=== PATIENT | female | born 1960 | race Caucasian/White ===

== ENCOUNTER 2017-10-13 10:34 | Inpatient (IN) | payer OTHER, MEDICARE ==
[~2017-10-13] VITALS: Ht 162.6 cm; Wt 62.2 kg
[2017-10-13 10:38] VITALS: BP 172/81; PULSE 92; RESP 16; TEMP 98; O2SAT 98
[2017-10-13] MEDS ORDERED: SODIUM CHLORIDE 0.9% FLUSH 10 ML FLUSH IVF PRN (11:00)
--- NOTE | 2017-10-13 11:07 | PD ---
HPI Chief Complaint: Altered Mental Status Time Seen by Provider: 10:44 Travel History International Travel<30 days: No Contact w/Intl Traveler<30days: No Traveled to known affect area: No History of Present Illness HPI The patient is a 57-year-old female who presents to the emergency department via private vehicle with her family for altered mental status. The daughter states she had not heard from her mother for 2 days, she came over the house today in the house was disheveled per the patient's daughter. The daughter also stated there were pills "everywhere ", however, she is unsure if her mother ingested too many medications. The daughter does state the patient' s psychiatrist, Dr. Chin, has been changing the doses of her psychiatric medications. The patient does have a history of previous psychosis requiring intubation approximately 4 years ago when her , according to the patient's daughter. The patient denies any physical complaints, appears to have a normal conversation, however, the middle of a conversation will start talking about cookies or some other inappropriate subject. The patient denies any current complaints. She denies any alcohol ingestion or illicit drug use. [facility] [place] Past Medical History Narrative Medical Depression, anxiety, thyroid disorder Past Surgical History Narrative Surgical Noncontributory Social History Tobacco Use: Yes Allergies-Medications (Allergen,Severity, Reaction): Coded Allergies: ibuprofen (Verified Allergy, Unknown, 10/13/17) promethazine (Verified Allergy, Unknown, 10/13/17) interaction with effexor Review of Systems ROS Limitations: Poor Historian Except as stated in HPI: all other systems reviewed are Neg General / Constitutional: No: Fever Cardiovascular: No: Chest Pain or Discomfort Respiratory: No: Shortness of Breath Gastrointestinal: No: Nausea, Vomiting, Abdominal Pain Neurologic: No: Dizziness Psychiatric: Positive: Depression, Mood Disorder, No: Suicidal Ideations, Substance Abuse, Homicidal Ideation Physical Exam Narrative GENERAL: Awake, alert, pleasant 57-year-old female who appears her stated age and is in no acute respiratory distress. SKIN: Focused skin assessment warm/dry. HEAD: Atraumatic. Normocephalic. EYES: Pupils equal and round. Exophthalmos noted. ENT: No nasal bleeding or discharge. Mucous membranes pink and moist. NECK: Trachea midline. No JVD. CARDIOVASCULAR: Regular rate and rhythm. No murmur appreciated. RESPIRATORY: No accessory muscle use. Clear to auscultation. Breath sounds equal bilaterally. GASTROINTESTINAL: Abdomen soft, non-tender, nondistended. Hepatic and splenic margins not palpable. MUSCULOSKELETAL: No obvious deformities. No clubbing. No cyanosis. No edema. NEUROLOGICAL: Awake and alert. No obvious cranial nerve deficits. Motor grossly within normal limits. Normal speech. Nonfocal. Oriented 3. PSYCHIATRIC: Odd affect. Data Data Last Documented VS Vital Signs Date Time Temp Pulse Resp B/P (MAP) Pulse Ox O2 Delivery O2 Flow Rate FiO2 10/13/17 11:25 97 Room Air 10/13/17 10:38 98.0 92 16 172/81 (111) Orders Orders Electrocardiogram (10/13/17 11:00) Complete Blood Count With Diff (10/13/17 11:00) Comprehensive Metabolic Panel (10/13/17 11:00) Prothrombin Time / Inr (Pt) (10/13/17 11:00) Act Partial Throm Time (Ptt) (10/13/17 11:00) Urinalysis - C+S If Indicated (10/13/17 11:00) Iv Access Insert/Monitor (10/13/17 11:00) Ecg Monitoring (10/13/17 11:00) Oximetry (10/13/17 11:00) Psych Screen (10/13/17 11:00) Sodium Chloride 0.9% Flush (Ns Flush) (10/13/17 11:00) Drug Screen, Random Urine (10/13/17 11:00) Alcohol (Ethanol) (10/13/17 11:00) Salicylates (Aspirin) (10/13/17 11:00) Tylenol (Acetaminophen) (10/13/17 11:00) Thyroid Stimulating Hormone (10/13/17 11:01) Labs Laboratory Tests Test 10/13/17 10:40 10/13/17 11:10 Urine Color Straw Urine Turbidity HAZY Urine pH 6.0 Urine Specific Bonner 1.002 Urine Protein NEG mg/dL Urine Glucose (UA) NEG mg/dL Urine Ketones NEG mg/dL Urine Occult Blood NEG Urine Nitrite NEG Urine Bilirubin NEG Urine Urobilinogen LESS THAN 2 mg/dL Urine Leukocyte Esterase NEG Urine RBC 1 /hpf Urine WBC 1 /hpf Urine Squamous Epithelial Cells 1 /hpf Urine Bacteria RARE /hpf Urine Mucus FEW /lpf Microscopic Urinalysis Comment CULT NOT INDICATED Urine Opiates Screen NEG Urine Barbiturates Screen NEG Urine Amphetamines Screen NEG Urine Benzodiazepines Screen NEG Urine Cocaine Screen NEG Urine Cannabinoids Screen POS White Blood Count 4.6 TH/MM3 Red Blood Count 4.66 MIL/MM3 Hemoglobin 14.5 GM/DL Hematocrit 42.1 % Mean Corpuscular Volume 90.3 FL Mean Corpuscular Hemoglobin 31.1 PG Mean Corpuscular Hemoglobin Concent 34.5 % Red Cell Distribution Width 13.5 % Platelet Count 220 TH/MM3 Mean Platelet Volume 7.5 FL Neutrophils (%) (Auto) 63.4 % Lymphocytes (%) (Auto) 23.1 % Monocytes (%) (Auto) 12.5 % Eosinophils (%) (Auto) 0.1 % Basophils (%) (Auto) 0.9 % Neutrophils # (Auto) 2.9 TH/MM3 Lymphocytes # (Auto) 1.1 TH/MM3 Monocytes # (Auto) 0.6 TH/MM3 Eosinophils # (Auto) 0.0 TH/MM3 Basophils # (Auto) 0.0 TH/MM3 CBC Comment DIFF FINAL Differential Comment Prothrombin Time 10.4 SEC Prothromb Time International Ratio 1.0 RATIO Activated Partial Thromboplast Time 26.6 SEC Blood Urea Nitrogen 10 MG/DL Creatinine 0.81 MG/DL Random Glucose 107 MG/DL Total Protein 7.3 GM/DL Albumin 3.7 GM/DL Calcium Level 9.1 MG/DL Alkaline Phosphatase 94 U/L Aspartate Amino Transf (AST/SGOT) 30 U/L Alanine Aminotransferase (ALT/SGPT) 24 U/L Total Bilirubin 0.8 MG/DL Sodium Level 138 MEQ/L Potassium Level 3.3 MEQ/L Chloride Level 105 MEQ/L Carbon Dioxide Level 23.3 MEQ/L Anion Gap 10 MEQ/L Estimat Glomerular Filtration Rate 73 ML/MIN Thyroid Stimulating Hormone 3rd Gen 0.686 uIU/ML Salicylates Level 5.1 MG/DL Acetaminophen Level LESS THAN 2.0 MCG/ML Ethyl Alcohol Level LESS THAN 3 MG/DL [facility] Medical Decision Making Medical Screen Exam Complete: Yes Emergency Medical Condition: Yes Medical Record Reviewed: Yes Interpretation(s) EKG reveals sinus rhythm with occasional ectopic premature complex. Inverted T waves noted in lead I, 2, aVL, V4, V5, V6. Laboratory Tests Test 10/13/17 10:40 10/13/17 11:10 Urine Color Straw Urine Turbidity HAZY Urine pH 6.0 Urine Specific Bonner 1.002 Urine Protein NEG mg/dL Urine Glucose (UA) NEG mg/dL Urine Ketones NEG mg/dL Urine Occult Blood NEG Urine Nitrite NEG Urine Bilirubin NEG Urine Urobilinogen LESS THAN 2 mg/dL Urine Leukocyte Esterase NEG Urine RBC 1 /hpf Urine WBC 1 /hpf Urine Squamous Epithelial Cells 1 /hpf Urine Bacteria RARE /hpf Urine Mucus FEW /lpf Microscopic Urinalysis Comment CULT NOT INDICATED Urine Opiates Screen NEG Urine Barbiturates Screen NEG Urine Amphetamines Screen NEG Urine Benzodiazepines Screen NEG Urine Cocaine Screen NEG Urine Cannabinoids Screen POS White Blood Count 4.6 TH/MM3 Red Blood Count 4.66 MIL/MM3 Hemoglobin 14.5 GM/DL Hematocrit 42.1 % Mean Corpuscular Volume 90.3 FL Mean Corpuscular Hemoglobin 31.1 PG Mean Corpuscular Hemoglobin Concent 34.5 % Red Cell Distribution Width 13.5 % Platelet Count 220 TH/MM3 Mean Platelet Volume 7.5 FL Neutrophils (%) (Auto) 63.4 % Lymphocytes (%) (Auto) 23.1 % Monocytes (%) (Auto) 12.5 % Eosinophils (%) (Auto) 0.1 % Basophils (%) (Auto) 0.9 % Neutrophils # (Auto) 2.9 TH/MM3 Lymphocytes # (Auto) 1.1 TH/MM3 Monocytes # (Auto) 0.6 TH/MM3 Eosinophils # (Auto) 0.0 TH/MM3 Basophils # (Auto) 0.0 TH/MM3 CBC Comment DIFF FINAL Differential Comment Prothrombin Time 10.4 SEC Prothromb Time International Ratio 1.0 RATIO Activated Partial Thromboplast Time 26.6 SEC Blood Urea Nitrogen 10 MG/DL Creatinine 0.81 MG/DL Random Glucose 107 MG/DL Total Protein 7.3 GM/DL Albumin 3.7 GM/DL Calcium Level 9.1 MG/DL Alkaline Phosphatase 94 U/L Aspartate Amino Transf (AST/SGOT) 30 U/L Alanine Aminotransferase (ALT/SGPT) 24 U/L Total Bilirubin 0.8 MG/DL Sodium Level 138 MEQ/L Potassium Level 3.3 MEQ/L Chloride Level 105 MEQ/L Carbon Dioxide Level 23.3 MEQ/L Anion Gap 10 MEQ/L Estimat Glomerular Filtration Rate 73 ML/MIN Thyroid Stimulating Hormone 3rd Gen 0.686 uIU/ML Salicylates Level 5.1 MG/DL Acetaminophen Level LESS THAN 2.0 MCG/ML Ethyl Alcohol Level LESS THAN 3 MG/DL Differential Diagnosis Differential diagnosis includes psychosis, hyperthyroidism, accidental overdose , intentional overdose, polysubstance abuse, bipolar affective disorder, schizoaffective disorder, major depression with psychosis. Narrative Course IV was established, labs are drawn and sent, the patient was placed on cardiac telemetry monitoring and continuous pulse oximetry monitoring. Sent to lab. The patient is oriented 3, follows simple commands, but in the middle of a conversation will say inappropriate comments, will start talking about cookies or other abstract subjects such as scuba diving to have nothing to do with current conversation. It appears the patient may be experiencing external stimuli and/or suffering from delusions/hallucinations. Tox screen was sent to lab, positive for cannabinoids, psychiatric evaluation was ordered. Otherwise, laboratory evaluation is unremarkable. Patient is medically cleared to be evaluated by psychiatry. Disposition as per psych. Diagnosis Primary Impression: Major depressive disorder with psychotic features Condition: Stable Jeovanny Moralez MD Oct 13, 2017 11:07
[2017-10-13 11:25] VITALS: O2SAT 97
[2017-10-13 11:37] LABS: AUTOMATED NEUTROPHIL # 2.9 TH/MM3 (1.8-7.7); BASOPHIL % 0.9 % (0.0-2.0); EOSINOPHIL % 0.1 % (0.0-4.0); HEMATOCRIT 42.1 % (35.0-46.0); HEMOGLOBIN 14.5 GM/DL (11.6-15.3); LYMPH % 23.1 % (9.0-44.0); LYMPHOCYTE # 1.1 TH/MM3 (1.0-4.8); MEAN CELL VOLUME 90.3 FL (80.0-100.0); MEAN CORPUSCULAR HEMOGLOBIN 31.1 PG (27.0-34.0); MEAN CORPUSCULAR HGB CONC 34.5 % (32.0-36.0); MEAN PLATELET VOLUME 7.5 FL (7.0-11.0); MONO % 12.5 % (0.0-8.0); MONOCYTE # 0.6 TH/MM3 (0-0.9); NEUT % 63.4 % (16.0-70.0); PLATELET COUNT 220 TH/MM3 (150-450); RED BLOOD COUNT 4.66 MIL/MM3 (4.00-5.30); RED CELL DISTRIBUTION WIDTH 13.5 % (11.6-17.2); WHITE BLOOD COUNT 4.6 TH/MM3 (4.0-11.0)
[2017-10-13 11:37] LABS: BACTERIA, URINE RARE /hpf; BILIRUBIN, URINE NEG (NEG); BLOOD, URINE NEG (NEG); GLUCOSE,URINE NEG (NEG); KETONE, URINE NEG (NEG); MUCUS URINE FEW /lpf (OCC); NITRITE,URINE NEG (NEG); SQUAMOUS EPITHELIAL CELL URINE 1 /hpf (0-5); URINE COLOR Straw (YELLW/STRAW); URINE LEUKOCYTE ESTERASE NEG (NEG)
[2017-10-13 11:42] LABS: PROTHROMBIN TIME - PATIENT 10.4 SEC (9.8-11.6)
[2017-10-13 11:51] LABS: ALBUMIN 3.7 GM/DL (3.4-5.0); AST (GOT) 30 U/L (15-37); BICARBONATE 23.3 MEQ/L (21.0-32.0); BLOOD UREA NITROGEN 10 MG/DL (7-18); CALCIUM 9.1 MG/DL (8.5-10.1); CHLORIDE 105 MEQ/L (98-107); CREATININE 0.81 MG/DL (0.50-1.00); GLOMERULAR FILTRATION RATE 73 ML/MIN (>89); GLUCOSE,RANDOM 107 MG/DL (74-106); SODIUM (NA) 138 MEQ/L (136-145)
[2017-10-13 11:52] LABS: ALT (GPT) 24 U/L (10-53)
[2017-10-13 11:54] LABS: ALKALINE PHOSPHATASE 94 U/L (45-117); TOTAL BILIRUBIN ADULT 0.8 MG/DL (0.2-1.0); TOTAL PROTEIN 7.3 GM/DL (6.4-8.2)
[2017-10-13 12:03] LABS: ACETAMINOPHEN LESS THAN 2.0 MCG/ML (10.0-30.0)
[2017-10-13 14:15] VITALS: BP 169/76; PULSE 75; RESP 17; O2SAT 96
[2017-10-13] MEDS ORDERED: BENZ0.5T PO (16:02)
[2017-10-13] MEDS ORDERED: HYDR50CA PO (16:02)
[2017-10-13] MEDS ORDERED: VENL150T PO (16:02)
[2017-10-13] MEDS ORDERED: RISP3TAB2 PO (16:02)
[2017-10-13] MEDS ORDERED: BUPR150T12 (16:02)
[2017-10-13] MEDS ORDERED: GABA400C5 PO (16:02)
[2017-10-13 18:55] VITALS: BP 177/74; PULSE 68; RESP 18; TEMP 98; O2SAT 97
[2017-10-14] VITALS (7 sets, daily range): BP systolic 150–211; BP diastolic 76–98; PULSE 64–76; RESP 16–20; TEMP 97.7–99.7; O2SAT 92–96
[2017-10-14] MEDS ORDERED: ALUMINUM/MAGNESIUM/SIMETH 30 ML CUP PO PRN (11:00)
[2017-10-14] MEDS ORDERED: LORazepam 0.5 MG TAB PO PRN (11:00)
[2017-10-14] MEDS ORDERED: LORazepam 2 MG/ML VIAL IM PRN ×2 (11:00)
[2017-10-14] MEDS ORDERED: MAGNESIUM HYDROXIDE SUSP 30 ML CUP PO PRN (11:00)
[2017-10-14] MEDS ORDERED: LORazepam 1 MG TAB PO PRN (11:00)
[2017-10-14] MEDS ORDERED: PILL SPLITTER OTHER PRN (11:15)
[2017-10-14] MEDS ORDERED: HYDR1CAP30 PO (14:55)
[2017-10-14] MEDS ORDERED: METO25TA3 PO (14:55)
[2017-10-14] MEDS ORDERED: ATOR10TA15 PO (14:55)
[2017-10-14] MEDS ORDERED: LOSA100T PO (14:55)
[2017-10-14] MEDS ORDERED: FENO160T PO (14:55)
[2017-10-14] MEDS ORDERED: cloNIDine HCL 0.1 MG TAB PO ONE ×2 (15:30)
[2017-10-14] MEDS: NICOTINE 21 MG/24 HR PATCH T-DERMAL SCH (16:30)
--- NOTE | 2017-10-14 16:57 | HHI.HP ---
Provisional Diagnosis Admission Date Oct 14, 2017 at 10:56 [place] I. Unspecified psychosis, r/o delirium due to multiple drugs overdose, r/o delirium related with benzodiazepines/alcohol withdrawal, history of depression , anxiety, benzodiazepine and opiates abuse [place] II. Deferred [place] III. Hypertension, hypothyroidism, fibromyalgia [place] IV. History of abusing anxiety and pain medication, history of severe withdrawal [place] V. 40 Certification of Person's Competence To Provide Express and Informed Consent I have personally examined Nasrin Dang , a person being served at [facility] on, Oct 14, 2017 16:31. Express and informed consent means consent voluntarily given in writing, by a competent person, after sufficient explanation and disclosure of the subject matter involved to enable the person to make a knowing and willful decision without any element of force, fraud, deceit, duress, or other form of constraint or coercion. This person is 18 years of age or older, is not now known to be incompetent to consent to treatment with a guardian advocate, and does not have a health care surrogate or proxy currently making medical treatment decisions. I have found this person to be one of the following: [] Competent to provide express and informed consent, as defined above, for voluntary admission to this facility and is competent to provide express and informed consent for treatment. He/she has the consistent capacity to make well reasoned, willful, and knowing decisions concerning his or her medical or mental health treatment. The person fully and consistently understands the purpose of the admission for examination/placement and is fully capable of personally exercising all rights [place] [x] Incompetent to provide express and informed consent to voluntary admission, and this is incompetent to provide express and informed consent to treatment. The person must be transferred to involuntary status and a petition for a guardian advocate filed with the Circuit Court. [] Refusing to provide express and informed consent to voluntary admission but is competent to provide express and informed consent for treatment. The person must be discharged or transferred to involuntary status. Form shall be completed within 24 hours of a person's arrival at the receiving facility and filed in the clinical record of each person: 1. Admitted on a voluntary basis 2. Permitted to provide express and informed consent to his/her own treatment 3. Allowed to transfer from involuntary to voluntary status 4. Prior to permitting a person to consent to his or her own treatment after having been previously found incompetent to consent to treatment. History of Present Illness Capacity: Lacks Capacity HPI The patient is a 57-year-old woman, domiciled alone in her own house, she has 1 daughter, she is , unemployed, supported by Social Security, with psychiatric history of depression, anxiety, psychosis related with benzodiazepine withdrawal, sedative-hypnotics and opiates use disorder, cannabis use disorder, 2 previous psychiatric hospitalizations, suicide attempts , outpatient care with Dr. Zuniga, she is on Risperdal 2 mg twice daily, Wellbutrin 150 mg twice daily, Effexor 150 mg twice daily, benztropine 1 mg twice daily, hydroxyzine 25 mg 3 times daily, gabapentin 600 mg 3 times daily, medical history hypothyroidism, hypertension, fibromyalgia, who presents to the emergency department via private vehicle with her family for altered mental status. The daughter states she had not heard from her mother for 2 days, she came over the house today in the house was disheveled per the patient's daughter. The daughter also stated there were pills "everywhere ", however, she is unsure if her mother ingested too many medications. The daughter does state the patient's psychiatrist, Dr. Chin, has been changing the doses of her psychiatric medications. The patient does have a history of previous psychosis requiring intubation approximately 4 years ago when her , according to the patient's daughter. The patient denies any physical complaints, appears to have a normal conversation, however, the middle of a conversation will start talking about cookies or some other inappropriate subject. The patient denies any current complaints. She denies any alcohol ingestion or illicit drug use. Toxicology is positive for cannabis. EMR reviewed. Case widely discussed with ER staff. Collateral information from her daughter Josefa Dang was obtained. Her daughter was able to tell me that her mother has an extensive history of abusing medications. She has being intubated in the past due to the severity of benzodiazepine withdrawal. She is specifically abused Xanax and pain medications. She has history of snorting her medications. She reports that she also has history of depression and anxiety, with previous psychiatric hospitalizations, but no suicidal attempts. She suspects that her mother, sister does not have access to Xanax and pain medications, could be potentially abusing her anxiety, depression medication prescribed by Dr. Zuniga. She agrees with a psychiatric hospitalization and treatment. On my evaluation of the patient, I find a patient looks perplexed, internally stimulated quite paranoid. At the beginning resistant and oppositional to cooperate, but able to open up with redirection. The patient reports that she does not remember the reason she is in the hospital. She says that she became confused at home after taking her medication as prescribed. She denies abuse of medications, she denies using recreational drugs, confronted about her U tox positive for cannabis, she insisted that she does not use drugs and never has used. The patient is quite confused, she has been disoriented and disruptive in the Jpod. He reports that yesterday she was hearing voices and seeing things that do not exist, but refused to elaborate about the content of perceptual disturbances. This moment she denies depression, she denies anxiety, she denies psychosis, she denies suicidal and homicidal ideation. She denies visual and auditory hallucinations. Patient does not seem to be reliable, quite confused, disoriented in time and place. Review of Systems Constitutional: DENIES: Diaphoretic episodes, Fatigue, Fever, Weight gain, Weight loss, Chills, Dizziness, Change in appetite, Night Sweats Endocrine: DENIES: Abnorml menstrual pattern, Heat/cold intolerance, Polydipsia , Polyuria, Polyphagia Eyes: DENIES: Blurred vision, Diplopia, Eye inflammation, Eye pain, Vision loss , Photosensitivity, Double Vision Ears, nose, mouth, throat: DENIES: Tinnitus, Hearing loss, Vertigo, Nasal discharge, Oral lesions, Throat pain, Hoarseness, Ear Pain, Running Nose, Epistaxis, Sinus Pain, Toothache, Odynophagia Respiratory: DENIES: Apneas, Cough, Snoring, Wheezing, Hemoptysis, Sputum production, Shortness of breath Cardiovascular: DENIES: Chest pain, Palpitations, Syncope, Dyspnea on Exertion , PND, Lower Extremity Edema, Orthopnea, Claudication Gastrointestinal: DENIES: Abdominal pain, Black stools, Bloody stools, Constipation, Diarrhea, Nausea, Vomiting, Difficulty Swallowing, Anorexia Genitourinary: DENIES: Abnormal vaginal bleeding, Dysmenorrhea, Dyspareunia, Sexual dysfunction, Urinary frequency, Urinary incontinence, Urgency, Hematuria , Dysuria, Nocturia, Vaginal discharge Musculoskeletal: DENIES: Joint pain, Muscle aches, Stiffness, Joint Swelling, Back pain, Neck pain Integumentary: DENIES: Abnormal pigmentation, Pruritus, Rash, Nail changes, Breast masses, Breast skin changes, Nipple discharge Hematologic/lymphatic: DENIES: Bruising, Lymphadenopathy Immunologic/allergic: DENIES: Eczema, Urticaria Neurologic: DENIES: Abnormal gait, Headache, Localized weakness, Paresthesias, Seizures, Speech Problems, Tremor, Poor Balance Psychiatric: COMPLAINS OF: Agitation, Delusions, DENIES: Anxiety, Confusion, Mood changes, Depression, Hallucinations, Suicidal Ideation, Homicidal Ideation Substance Abuse History Drugs/Alcohol past 12 months Even though the patient denies marijuana, she is positive for THC, she has history of abusing benzodiazepines and opiates Past Family Social History Coded Allergies: ibuprofen (Verified Allergy, Unknown, 10/13/17) promethazine (Verified Allergy, Unknown, 10/13/17) interaction with effexor Reported Medications Metoprolol Tartrate (Metoprolol Tartrate) 25 Mg Tab, 25 MG PO BID, #60 TAB 0 Refills 10/14/17 Losartan (Losartan) 100 Mg Tab, 100 MG PO DAILY for Blood Pressure Management, # 30 TAB 0 Refills 10/14/17 Fenofibrate (Fenofibrate) 160 Mg Tab, 160 MG PO DAILY, #30 TAB 0 Refills 10/14/17 Atorvastatin (Atorvastatin) 10 Mg Tab, 10 MG PO HS for Cholesterol Management, # 30 TAB 0 Refills 10/14/17 Hydroxyzine Pamoate (Hydroxyzine Pamoate) 25 Mg Cap, 25 MG PO TID Y for ANXIETY , CAP 0 Refills 10/14/17 Venlafaxine ER 24 HR (Venlafaxine ER 24 HR) 150 Mg Tab, 150 MG PO BID, #30 TAB 0 Refills 10/13/17 Gabapentin (Gabapentin) 400 Mg Cap, 400 CAP PO TID, #30 CAP 0 Refills 10/13/17 Risperidone (Risperidone) 3 Mg Tab, 3 MG PO HS, #30 TAB 0 Refills 10/13/17 Benztropine (Benztropine) 0.5 Mg Tab, 1 MG PO BID, #60 TAB 0 Refills 10/13/17 Bupropion ER 12 HR (Smoking Deterrent) (Bupropion Sr 12 HR) 150 Mg Tab, 150 MG BID, TAB Take 1 tablet daily x 3 days then twice daily thereafter. 10/13/17 Discontinued Reported Medications Hydroxyzine Pamoate (Hydroxyzine Pamoate) 50 Mg Cap, 50 MG PO TID, CAP 0 Refills 10/13/17 Current Medications Medications (Trade) Dose Ordered Sig/Nico Route Start Time Stop Time Status Last Admin (NS Flush) 2 ml UNSCH PRN IVF 10/13/17 11:00 (Ativan) 1 mg Q6H PRN PO 10/14/17 11:00 (Ativan Inj) 1 mg Q6H PRN IM 10/14/17 11:00 (Tylenol) 650 mg Q4H PRN PO 10/14/17 11:00 (Milk Of Magnesia Liq) 30 ml DAILY PRN PO 10/14/17 11:00 (Mag-Al Plus Susp Liq) 30 ml Q6H PRN PO 10/14/17 11:00 (Habitrol 21 Mg Patch.24 Hr) 1 patch DAILY T-DERMAL 10/14/17 11:00 Miscellaneous Information 1 HS T-DERMAL 10/14/17 21:00 (Catapres) 0.1 mg ONCE PRN PO 10/14/17 17:30 10/14/17 17:31 (Lipitor) 10 mg HS PO 10/14/17 21:00 (Cozaar) 100 mg DAILY PO 10/14/17 16:30 (Lopressor) 25 mg BID PO 10/14/17 21:00 (risperDAL) 3 mg HS PO 10/14/17 21:00 (Effexor Xr) 150 mg BID PO 10/14/17 21:00 UNV (Tricor) 145 mg DAILY PO 10/14/17 16:30 (Neurontin) 300 mg TID PO 10/14/17 18:00 UNV Family Psych History No family psychiatric history Social History Patient was born and raised in [place], she has been living in [place] for about a year, she lives alone in her house in [facility], she has a daughter, , her highest level of education is some college Patient's Strengths (min. 2) Outpatient psychiatric care Physical Exam No tremors, no EPS, no psychomotor agitation and retardation Vital Signs Vital Signs Date Time Temp Pulse Resp B/P (MAP) Pulse Ox O2 Delivery O2 Flow Rate FiO2 10/14/17 13:50 99.3 67 16 175/85 (115) 92 10/14/17 12:10 Room Air Mental Status Examination Appearance: Appropriate Consciousness: Alert Orientation: Person Motor Activity: Normal gait Speech: Unremarkable Language: Adequate Fund of Knowledge: Adequate Attention and Concentration: Adequate Memory: Unremarkable Mood: Irritable Affect: Flat Thought Process & Associations: Intact Thought Content: Appropriate Hallucination Type: Auditory, Visual Delusion Type: Paranoid Suicidal Ideation: No Suicidal Plan: No Suicidal Intention: No Homicidal Ideation: No Homicidal Plan: No Homicidal Intention: No Insight: Poor Judgment: Poor Assessment & Plan Problem List: (1) Unspecified psychosis ICD Codes: F29 - Unspecified psychosis not due to a substance or known physiological condition Assessment & Plan: On psychiatric evaluation today the patient presents quite confused, internally preoccupied, with a perplexed face, visibly paranoid, at the beginning oppositional and resistant and refusing to cooperate, but sensitive to redirection. In the ER the patient has been quite disruptive, talking to herself, suspicious. The patient is just partially oriented, with evident confusion, she report that she has been experiencing episodic visual and auditory hallucinations, even though she does not elaborate about the content of this perceptual disturbances. As per conversation with the daughter , this patient has history of abusing benzodiazepines, opiates, becoming psychotic in the context of opiate withdrawal and needing mechanical ventilation assistance/intubation due to the severity of the withdrawal. She has history of depression and anxiety, 2 times psychotic in the context of substance withdrawal, 2 previous psychiatric hospitalizations, suicide attempts. She is engaged in an outpatient psychiatric care with , on psychotropic regimen mentioned above. Given her level of reality testing impairment and distortion in perception patient could be a danger to self and others and she needs psychiatric admission for stabilization. Will restart her outpatient medical medications. we will continue Effexor 150 mg twice daily. Will discontinue benztropine 1 mg twice daily and hydroxyzine 25 mg 3 times daily due to the known negative effects of anticholinergics in cognition. Continue Risperdal 3 mg twice daily, gabapentin 300 mg daily. Hold Wellbutrin 150 mg twice daily given potential increase in seizure threshold. Try to avoid narcotics as much as possible. QTc interval is 439. Will consult hospitalist for elevated blood pressure and AMS. Consult psychiatry for second opinion. Follow-up BP/HR potential symptoms of benzo withdrawal closely. Daughter has given consent for we are starting psychotropics and agrees with current plan. Dx; psychosis NOS, r/o anticholinergic delirium, r/o substance-induced psychosis , r/o delirium due to GABAergic medications withdrawal Assessment & Plan Estimated LOS: Talib Urena MD Oct 14, 2017 16:57
[2017-10-14] MEDS: FENOFIBRATE 145 MG TAB PO SCH (17:06)
[2017-10-14] MEDS: GABAPENTIN 300 MG CAP PO SCH (17:06)
[2017-10-14] MEDS: LOSARTAN 50 MG TAB PO SCH (17:06)
[2017-10-14] MEDS ORDERED: FLUMAZENIL 0.5 MG/5 ML VIAL IV PUSH PRN (17:30)
[2017-10-14] MEDS ORDERED: cloNIDine HCL 0.1 MG TAB PO PRN ×2 (17:30→18:00)
[2017-10-14] MEDS ORDERED: LORazepam 2 MG/ML VIAL IV PUSH PRN ×4 (17:30)
[2017-10-14] MEDS ORDERED: LORazepam 2 MG TAB PO PRN (17:30)
--- NOTE | 2017-10-14 17:35 | PD.CONS ---
HPI Service [facility] [place] [facility] Consult Requested By Reason for Consult HTN and AMS Primary Care Physician Lucy Avalos MD Diagnoses: History of Present Illness 57-year-old female with past medical history significant for hypertension, hyperlipidemia, hypothyroidism, hyperlipidemia, depression, anxiety, cannabis use, and past benzo withdrawal requiring intubation and mechanical ventilation who presents to the emergency department on 10/13 via private vehicle with daughter. Review of ED documentation, daughter apparently had not heard back from mother in 2 days therefore she visited patient at home. Daughter reports that they were pills "everywhere" nurse also reports that she spoke to daughter and daughter noticed that there were empty gabapentin capsules at home. Patient has a history of snorting gabapentin in the past. Patient is seen and examined in her room with nurse at bedside. She is awake, alert, and oriented 3, appears anxious but is cooperative. She reports some chills at home but denies any recent fevers, nausea, vomiting, diarrhea, shortness of breath, headache, dizziness, or chest pain. Patient does endorse some coughing from time to time but this is dry and nonproductive. Patient reports that she has not been taking her home blood pressure medications for "some time now" She reports being compliant with her levothyroxine which he takes 100 mcg daily. She is having regular bowel movements denies any constipation, or dysuria. Patient is requesting pain medication, and specific Percocet. When asked who is been filling her pain medication prescription or who she sees as her primary or pain management patient is unable to remember. Nurse has called her pharmacy and no recent history of pain medications being filled. During my interview with patient she is calm and cooperative however towards the end of my interaction she becomes anxious and states "I cannot do this anymore". Review of Systems Except as stated in HPI: all other systems reviewed are Neg Past Family Social History Allergies: Coded Allergies: ibuprofen (Verified Allergy, Unknown, 10/13/17) promethazine (Verified Allergy, Unknown, 10/13/17) interaction with effexor Past Medical History Hypertension Hyperthyroidism treated with radioactive iodine leading to hypothyroidism Hyperlipidemia Fibromyalgia Daughter reports patient had RI in 2009 with no stenting Past Surgical History Left and cyst removal Tonsillectomy Reported Medications Reported Meds & Active Scripts Active Reported Metoprolol Tartrate 25 Mg Tab 25 Mg PO BID Losartan (Losartan Potassium) 100 Mg Tab 100 Mg PO DAILY Fenofibrate 160 Mg Tab 160 Mg PO DAILY Atorvastatin (Atorvastatin Calcium) 10 Mg Tab 10 Mg PO HS Hydroxyzine Pamoate 25 Mg Cap 25 Mg PO TID PRN Venlafaxine ER 24 HR (Venlafaxine HCl) 150 Mg Tab 150 Mg PO BID Gabapentin 400 Mg Cap 400 Cap PO TID Risperidone 3 Mg Tab 3 Mg PO HS Benztropine (Benztropine Mesylate) 0.5 Mg Tab 1 Mg PO BID Bupropion Sr 12 HR (Bupropion ER 12 HR (Smoking Deterrent)) 150 Mg Tab 150 Mg BID Take 1 tablet daily x 3 days then twice daily thereafter. Active Ordered Medications Current Medications Medications (Trade) Dose Ordered Sig/Nico Route Start Time Stop Time Status Last Admin (NS Flush) 2 ml UNSCH PRN IVF 10/13/17 11:00 (Tylenol) 650 mg Q4H PRN PO 10/14/17 11:00 (Milk Of Magnesia Liq) 30 ml DAILY PRN PO 10/14/17 11:00 (Mag-Al Plus Susp Liq) 30 ml Q6H PRN PO 10/14/17 11:00 (Habitrol 21 Mg Patch.24 Hr) 1 patch DAILY T-DERMAL 10/14/17 11:00 10/14/17 16:30 Miscellaneous Information 1 HS T-DERMAL 10/14/17 21:00 (Lipitor) 10 mg HS PO 10/14/17 21:00 (Cozaar) 100 mg DAILY PO 10/14/17 16:30 10/14/17 17:06 (Lopressor) 25 mg BID PO 10/14/17 21:00 (risperDAL) 3 mg HS PO 10/14/17 21:00 (Effexor Xr) 150 mg BID PO 10/14/17 21:00 (Tricor) 145 mg DAILY PO 10/14/17 16:30 10/14/17 17:06 (Neurontin) 300 mg TID PO 10/14/17 18:00 10/14/17 17:06 (Romazicon Inj) 0.2 mg Q1M PRN IV PUSH 10/14/17 17:30 (Ativan) 1 mg Q4H PRN PO 10/14/17 17:30 (Ativan Inj) 1 mg Q4H PRN IV PUSH 10/14/17 17:30 (Ativan) 2 mg Q2H PRN PO 10/14/17 17:30 (Ativan Inj) 2 mg Q2H PRN IV PUSH 10/14/17 17:30 (Ativan Inj) 2 mg Q1H PRN IV PUSH 10/14/17 17:30 (Ativan Inj) 2 mg Q15M PRN IV PUSH 10/14/17 17:30 Family History Denies any significant family history Social History Tobacco: 1 pack per day >20 years Alcohol: Denies Illicit drug use: Marijuana "occasionally" Physical Exam Vital Signs Vital Signs Date Time Temp Pulse Resp B/P (MAP) Pulse Ox O2 Delivery O2 Flow Rate FiO2 10/14/17 16:50 97.9 76 16 204/93 (130) 96 10/14/17 13:50 99.3 67 16 175/85 (115) 92 10/14/17 12:11 10/14/17 12:10 97.7 69 18 150/88 (108) 95 Room Air 10/14/17 06:20 99.7 69 18 153/93 (113) 95 Room Air 10/13/17 18:55 98.0 68 18 177/74 (108) 97 Room Air Physical Exam GENERAL: This is a well-nourished, well-developed patient, appears anxious in NAD. SKIN: No rashes or ecchymoses. Cool and dry. Right posterior forearm with erythema, likely bug bite. HEAD: Atraumatic. Normocephalic. EYES: Pupils equal round and reactive. Extraocular motions intact. No scleral icterus. No injection or drainage. ENT: Nose without bleeding, purulent drainage. Throat without erythema. Uvula midline. Airway patent. NECK: Trachea midline. No JVD. Supple, nontender, no meningeal signs. CARDIOVASCULAR: Regular rate and rhythm without murmurs, gallops, or rubs. RESPIRATORY: Clear to auscultation. Breath sounds equal bilaterally. No wheezes , rales, or rhonchi. GASTROINTESTINAL: Abdomen soft, non-tender, nondistended. No guarding. + bowel sounds in all quadrants. MUSCULOSKELETAL: Extremities without clubbing, cyanosis, or edema. No joint tenderness, effusion, or edema noted. No calf tenderness. Negative Homans sign bilaterally. NEUROLOGICAL: Awake and alert, oriented x3. Cranial nerves II through XII intact. Motor and sensory grossly within normal limits. Five out of 5 muscle strength in all muscle groups. Normal speech, normal conversation however at times she speaks with word salad. Result Diagram: 10/13/17 1110 10/13/17 1110 Assessment and Plan Assessment and Plan 57-year-old female with past medical history significant for hypertension, hyperlipidemia, hypothyroidism, hyperlipidemia, depression, anxiety, cannabis use, and past benzo withdrawal requiring intubation and mechanical ventilation who presents to the emergency department on 10/13 via private vehicle with daughter. Patient has been admitted to inpatient psychiatry unit, [facility] consulted to assist with medical management of hypertension and evaluation of altered mental status. Psychosis ?OD - Empty Gabapentin caps found at home by daughter. Patient also with a history of benzo-withdraw requiring intubation 4yrs ago. - Treatment plan per psych - UA negative, check chest x-ray due to complaints of chills at home along with low grad temps - Check RPR, B12, ammonia level - Check CT of the brain -CIWA for possible withdraw, although negative for benzos. on admission toxicology screed. Discussed with (okay with Benzos if needed) Hypertensive urgency, asymptomatic Hyperlipidemia -Secondary to noncompliance, clonidine 0.1 mg administered earlier today -Lopressor 25 mg twice daily, Cozaar 100 mg daily, Lipitor 10 mg at bedtime, and fenofibrate 145 mg daily -Should to receive 2100 Lopressor and BP rechecked afterwards, if appropriate as needed clonidine - Discussed with patient importance of BP control and meterman damage to organs, seems uninterested -Continue monitoring BP and adjusting medications accordingly Hypothyroidism -TSH 0.686, continue levothyroxine 100 mcg Fibromyalgia - ? If this is a true history, patient requesting pain medication by name. -Nurse has called pharmacy and verified medications with no recent narcotic prescription. Toxicology screen was also negative for opiates -Will hold off on opiate medication, as needed Tylenol. Marijuana use - Patient reports it has been time since she has last smoked, although tox screen was + - Cessation encouraged DVT prophylaxis-ambulation Thank you for this consultation, will continue to follow along with you. Discussed Condition With Discussed with , patient and nurse. Tenzin Aragon Oct 14, 2017 17:35
[2017-10-14] MEDS ORDERED: GABAPENTIN 400 MG CAP PO SCH (18:00)
[2017-10-14] MEDS ORDERED: POTASSIUM CHLORIDE 20 MEQ CONTROLLED RELEASE TAB PO ONE (18:00)
--- NOTE | 2017-10-14 20:44 | RADRPT ---
EXAM DATE: 10/14/2017 8:33 PM EDT AGE/SEX: 57 years / Female INDICATIONS: Short of breath. CLINICAL DATA: This is the patient's initial encounter. Patient reports that signs and symptoms have been present for 1 day and indicates a pain score of 0/10. MEDICAL/SURGICAL HISTORY: None. None. COMPARISON: No prior exams available for comparison. FINDINGS: There is a 12 mm nodule upper left lung. Further evaluation with chest CT recommended. Subacute right eighth and ninth rib fractures noted. No effusion. No pneumothorax. CONCLUSION: 12 mm nodule upper left lung. Further evaluation with chest CT recommended. Electronically signed by: Justin Penn MD 10/14/2017 8:43 PM EDT
--- NOTE | 2017-10-14 20:50 | RADRPT ---
EXAM DATE: 10/14/2017 8:31 PM EDT AGE/SEX: 57 years / Female INDICATIONS: Altered mental status CLINICAL DATA: This is the patient's initial encounter. Patient reports that signs and symptoms have been present for 1 day and indicates a pain score of 0/10. MEDICAL/SURGICAL HISTORY: Hypertension. Cardiovascular disease. None. RADIATION DOSE: 45.27 CTDI (mGy) COMPARISON: No prior exams available for comparison. TECHNIQUE: CT of the head without contrast. Using automated exposure control and adjustment of the mA and/or kV according to patient size, radiation dose was kept as low as reasonably achievable to ob tain optimal diagnostic quality images. DICOM format image data is available electronically for revi ew and comparison. FINDINGS: Cerebrum: The ventricles are normal for age. No evidence of midline shift, mass lesion, hemorrhage or acute infarction. No extraaxial fluid collections are seen. Posterior Fossa: The cerebellum and brainstem are intact. The 4th ventricle is midline. The cerebe llopontine angle is unremarkable. Extracranial: The visualized portion of the orbits is intact. Skull: The calvaria is intact. No evidence of skull fracture. CONCLUSION: 1. No acute intracranial abnormalities. Electronically signed by: Justin Penn MD 10/14/2017 8:49 PM EDT
[2017-10-14] MEDS: REMOVE OLD NICODERM (NICOTINE) PATCH T-DERMAL SCH (21:00)
[2017-10-14] MEDS: risperiDONE 3 MG TAB PO SCH (21:26)
[2017-10-14] MEDS: ATORVASTATIN 10 MG TAB PO SCH (21:26)
[2017-10-14] MEDS: METOPROLOL TARTRATE 25 MG TAB PO SCH (21:26)
[2017-10-14] MEDS: VENLAFAXINE HCL XR 75 MG CAP PO SCH (21:26)
[2017-10-14] MEDS: ACETAMINOPHEN 325 MG TAB PO PRN (22:37)
--- NOTE | 2017-10-14 23:18 | EKG ---
Date Performed: 10/13/2017 Time Performed: 11:15:16 PTAGE: 57 years EKG: Sinus rhythm WITH OCCASIONAL ECTOPIC PREMATURE COMPLEXES POSSIBLE LEFT ATRIAL ENLARGEMENT LEFT VENTRICULAR HYPERT ROPHY AND ST-T CHANGE ABNORMAL ECG NO PREVIOUS TRACING DOCTOR: Jakub Bird Interpretating Date/Time 10/14/2017 23:05:08
[2017-10-15 02:00] VITALS: BP 164/88; PULSE 56; RESP 20
[2017-10-15] MEDS: LEVOTHYROXINE SODIUM 100 MCG TAB PO SCH (05:26)
[2017-10-15 06:00] VITALS: BP 162/84; PULSE 51; RESP 16; TEMP 97.5; O2SAT 94
[2017-10-15 07:57] LABS: BICARBONATE 25.2 MEQ/L (21.0-32.0); BLOOD UREA NITROGEN 5 MG/DL (7-18); CALCIUM 8.4 MG/DL (8.5-10.1); CHLORIDE 108 MEQ/L (98-107); CHOLESTEROL 146 MG/DL (120-200); CREATININE 0.71 MG/DL (0.50-1.00); GLOMERULAR FILTRATION RATE 85 ML/MIN (>89); GLUCOSE,RANDOM 91 MG/DL (74-106); SODIUM (NA) 142 MEQ/L (136-145)
[2017-10-15 08:00] LABS: CHOLESTEROL/ HDL RATIO 4.33 RATIO; HDL CHOLESTEROL 33.7 MG/DL (40.0-60.0); LDL CHOLESTEROL 71 MG/DL (0-99); TRIGLYCERIDES 209 MG/DL (42-150)
[2017-10-15] MEDS: GABAPENTIN 300 MG CAP PO SCH ×3 (09:00→18:00)
[2017-10-15] MEDS: NICOTINE 21 MG/24 HR PATCH T-DERMAL SCH (09:00)
[2017-10-15] MEDS: FENOFIBRATE 145 MG TAB PO SCH (09:00)
[2017-10-15] MEDS: LOSARTAN 50 MG TAB PO SCH (09:00)
[2017-10-15] MEDS: VENLAFAXINE HCL XR 75 MG CAP PO SCH ×2 (09:00→20:56)
[2017-10-15] MEDS: METOPROLOL TARTRATE 25 MG TAB PO SCH ×3 (09:00→21:06)
[2017-10-15 11:20] LABS: HEMOGLOBIN A1C 5.1 % (4.3-6.0)
--- NOTE | 2017-10-15 13:08 | HHI.PYPN ---
Subjective Remarks Patient initially admitted by Dr. Hernandez's H&P reviewed and agreed with. I have completed the initial psychiatric template orders and on the review of the med reconciliation. Dr. Hernandez his assigned first opinion petition supporting Cruz act. I agree patient meets criteria for involuntary psychiatric hospitalization under the Cruz act thus I will cosign second opinion petition supporting Cruz act patient seen by me in the [facility] with nurse Alta patient continues somewhat vigilant paranoid and suspicious though also states she feels somewhat safer with us. Patient is scheduled to go for an MRI of her chest to follow-up with a chest x-ray. For now continue treatment Review of Systems Except as stated in HPI: all other systems reviewed are Neg Mental Status Examination Appearance: Appropriate Consciousness: Alert Orientation: Person Motor Activity: Normal gait Speech: Unremarkable Language: Adequate Fund of Knowledge: Adequate Attention and Concentration: Adequate Memory: Unremarkable Mood: Irritable Affect: Flat Thought Process & Associations: Intact Thought Content: Appropriate Hallucination Type: Auditory, Visual Delusion Type: Paranoid Suicidal Ideation: No Suicidal Plan: No Suicidal Intention: No Homicidal Ideation: No Homicidal Plan: No Homicidal Intention: No Insight: Poor Judgment: Poor Results Labs Test 10/14/17 19:18 10/15/17 06:26 Ammonia 26 MCMOL/L Vitamin B12 Level 341 PG/ML Rapid Plasma Reagin NON-REACTIVE Blood Urea Nitrogen 5 MG/DL Creatinine 0.71 MG/DL Random Glucose 91 MG/DL Calcium Level 8.4 MG/DL Sodium Level 142 MEQ/L Potassium Level 3.8 MEQ/L Chloride Level 108 MEQ/L Carbon Dioxide Level 25.2 MEQ/L Anion Gap 9 MEQ/L Estimat Glomerular Filtration Rate 85 ML/MIN Hemoglobin A1c 5.1 % Triglycerides Level 209 MG/DL Cholesterol Level 146 MG/DL LDL Cholesterol 71 MG/DL HDL Cholesterol 33.7 MG/DL Cholesterol/HDL Ratio 4.33 RATIO Vitals/IOs Vital Signs Date Time Temp Pulse Resp B/P (MAP) Pulse Ox O2 Delivery O2 Flow Rate FiO2 10/15/17 06:00 97.5 51 16 162/84 (110) 94 10/14/17 12:10 Room Air Intake and Output 10/15/17 10/15/17 10/16/17 08:00 16:00 00:00 Intake Total 120 ml Balance 120 ml Assessment & Plan Problem List: (1) BRIEF PSYCHOTIC DISORDER ICD Codes: F23 - BRIEF PSYCHOTIC DISORDER Assessment & Plan Estimated LOS: days patient's psychosis appears to be softening, for now continue treatment patient does deny suicidality homicidality, voices or visions Justification for Cont. Inpt. At this time patient would decompensate a place to the lower level of care Discharge Planning Patient lives alone Request HC Surrog/Guard Advoc?: No Masood Andre MD Oct 15, 2017 13:08
[2017-10-15] MEDS ORDERED: hydrOXYzine HCL 50 MG TAB PO PRN (13:15)
[2017-10-15] MEDS ORDERED: PANTOPRAZOLE SOD 40 MG DELAYED RELEASE TAB PO ONE (13:45)
[2017-10-15] MEDS ORDERED: ONDANSETRON ODT 4 MG TAB PO PRN (13:45)
--- NOTE | 2017-10-15 13:48 | HHI.PR ---
Subjective Remarks Patient resting in her bed in no acute distress patient c/o indigestion asking for Prilosec, reports she take at home daily Objective Vitals Vital Signs Date Time Temp Pulse Resp B/P (MAP) Pulse Ox O2 Delivery O2 Flow Rate FiO2 10/15/17 06:00 97.5 51 16 162/84 (110) 94 10/15/17 05:26 18 10/15/17 02:00 56 20 164/88 (113) 10/14/17 21:30 64 20 194/76 (115) 10/14/17 17:50 66 211/98 (135) 10/14/17 17:48 69 16 187/91 (123) 93 10/14/17 16:50 97.9 76 16 204/93 (130) 96 10/14/17 13:50 99.3 67 16 175/85 (115) 92 I/O 10/14/17 10/14/17 10/14/17 10/15/17 10/15/17 10/15/17 07:00 15:00 23:00 07:00 15:00 23:00 Intake Total 360 ml 120 ml Balance 360 ml 120 ml Intake Oral 360 ml 120 ml # Voids 1 2 Result Diagram: 10/13/17 1110 10/15/17 0626 Other Results Laboratory Tests Test 10/13/17 10:40 10/13/17 11:10 10/14/17 19:18 10/15/17 06:26 Urine Color Straw Urine Turbidity HAZY Urine pH 6.0 Urine Specific [place] 1.002 Urine Protein NEG mg/dL Urine Glucose (UA) NEG mg/dL Urine Ketones NEG mg/dL Urine Occult Blood NEG Urine Nitrite NEG Urine Bilirubin NEG Urine Urobilinogen LESS THAN 2 mg/dL Urine Leukocyte Esterase NEG Urine RBC 1 /hpf Urine WBC 1 /hpf Urine Squamous Epithelial Cells 1 /hpf Urine Bacteria RARE /hpf Urine Mucus FEW /lpf Microscopic Urinalysis Comment CULT NOT INDICATED Urine Opiates Screen NEG Urine Barbiturates Screen NEG Urine Amphetamines Screen NEG Urine Benzodiazepines Screen NEG Urine Cocaine Screen NEG Urine Cannabinoids Screen POS White Blood Count 4.6 TH/MM3 Red Blood Count 4.66 MIL/MM3 Hemoglobin 14.5 GM/DL Hematocrit 42.1 % Mean Corpuscular Volume 90.3 FL Mean Corpuscular Hemoglobin 31.1 PG Mean Corpuscular Hemoglobin Concent 34.5 % Red Cell Distribution Width 13.5 % Platelet Count 220 TH/MM3 Mean Platelet Volume 7.5 FL Neutrophils (%) (Auto) 63.4 % Lymphocytes (%) (Auto) 23.1 % Monocytes (%) (Auto) 12.5 % Eosinophils (%) (Auto) 0.1 % Basophils (%) (Auto) 0.9 % Neutrophils # (Auto) 2.9 TH/MM3 Lymphocytes # (Auto) 1.1 TH/MM3 Monocytes # (Auto) 0.6 TH/MM3 Eosinophils # (Auto) 0.0 TH/MM3 Basophils # (Auto) 0.0 TH/MM3 CBC Comment DIFF FINAL Differential Comment Prothrombin Time 10.4 SEC Prothromb Time International Ratio 1.0 RATIO Activated Partial Thromboplast Time 26.6 SEC Blood Urea Nitrogen 10 MG/DL 5 MG/DL Creatinine 0.81 MG/DL 0.71 MG/DL Random Glucose 107 MG/DL 91 MG/DL Total Protein 7.3 GM/DL Albumin 3.7 GM/DL Calcium Level 9.1 MG/DL 8.4 MG/DL Alkaline Phosphatase 94 U/L Aspartate Amino Transf (AST/SGOT) 30 U/L Alanine Aminotransferase (ALT/SGPT) 24 U/L Total Bilirubin 0.8 MG/DL Sodium Level 138 MEQ/L 142 MEQ/L Potassium Level 3.3 MEQ/L 3.8 MEQ/L Chloride Level 105 MEQ/L 108 MEQ/L Carbon Dioxide Level 23.3 MEQ/L 25.2 MEQ/L Anion Gap 10 MEQ/L 9 MEQ/L Estimat Glomerular Filtration Rate 73 ML/MIN 85 ML/MIN Thyroid Stimulating Hormone 3rd Gen 0.686 uIU/ML Salicylates Level 5.1 MG/DL Acetaminophen Level LESS THAN 2.0 MCG/ML Ethyl Alcohol Level LESS THAN 3 MG/DL Ammonia 26 MCMOL/L Vitamin B12 Level 341 PG/ML Rapid Plasma Reagin NON-REACTIVE Hemoglobin A1c 5.1 % Triglycerides Level 209 MG/DL Cholesterol Level 146 MG/DL LDL Cholesterol 71 MG/DL HDL Cholesterol 33.7 MG/DL Cholesterol/HDL Ratio 4.33 RATIO Imaging Last Impressions Head CT 10/14/17 0000 Signed Impressions: CONCLUSION: 1. No acute intracranial abnormalities. Chest X-Ray 10/14/17 0000 Signed Impressions: CONCLUSION: 12 mm nodule upper left lung. Further evaluation with chest CT recommended. Objective Remarks GENERAL: This is a well-nourished, well-developed patient, in no apparent distress. CARDIOVASCULAR: Regular rate and rhythm RESPIRATORY: Clear to auscultation. Breath sounds equal bilaterally. GASTROINTESTINAL: Abdomen soft, non-tender, nondistended. Normal active bowel sounds MUSCULOSKELETAL: Extremities without clubbing, cyanosis, or edema. NEURO: Awake and alert. Moves all ext x4 A/P Assessment and Plan 57-year-old female with past medical history significant for hypertension, hyperlipidemia, hypothyroidism, hyperlipidemia, depression, anxiety, cannabis use, and past benzo withdrawal requiring intubation and mechanical ventilation who presents to the emergency department on 10/13 via private vehicle with daughter. Patient has been admitted to inpatient psychiatry unit, [facility] consulted to assist with medical management of hypertension and evaluation of altered mental status. Psychosis ?OD - Empty Gabapentin caps found at home by daughter. Patient also with a history of benzo-withdraw requiring intubation 4yrs ago. - Treatment plan per psych - UA negative, check chest x-ray due to complaints of chills at home along with low grad temps - Check RPR non-reactive, B12 341, ammonia level 26 - CT of the head shows no acute intracranial abnormalities -CIWA for possible withdraw, although negative for benzos. on admission toxicology screed. Discussed with (okay with Benzos if needed) Abnormal CXR CXR reveals 12 mm nodule upper left lobe. patient has a 20 + pack year history and continues to smoke CT chest/thorax with IV contrast ordered and pending Hypertensive urgency, asymptomatic Hyperlipidemia -Secondary to noncompliance/ withdraw, clonidine 0.1 mg as needed for HTN -Lopressor 25 mg twice daily, Cozaar 100 mg daily resumed 10/14 -Lipitor 10 mg at bedtime and Fenofibrate 145 mg daily -decrease nicotine patch due to HTN -Continue monitoring BP and adjusting medications accordingly Hypothyroidism -TSH 0.686, continue levothyroxine 100 mcg Fibromyalgia - ? If this is a true history, patient requesting pain medication by name. -Nurse has called pharmacy and verified medications with no recent narcotic prescription. Toxicology screen was also negative for opiates -Will hold off on opiate medication, as needed Tylenol. Marijuana use - Patient reports it has been time since she has last smoked, although tox screen was + - Cessation encouraged GERD -add Protonix now and daily DVT prophylaxis-ambulation Discussed case with nurse, patient and Dr. Wasserman (supervising physician) Sana Seaman Oct 15, 2017 13:48
[2017-10-15] MEDS ORDERED: IOHEXOL 350 MG/ML 10 ML VIAL (for RAD DIAG) IVCONTRAST ONE (15:28)
--- NOTE | 2017-10-15 16:00 | RADRPT ---
EXAM DATE: 10/15/2017 3:27 PM EDT AGE/SEX: 57 years / Female INDICATIONS: Abnormal chest xray CLINICAL DATA: This is the patient's initial encounter. Patient reports that signs and symptoms have been present for 1 day and indicates a pain score of 0/10. MEDICAL/SURGICAL HISTORY: Cardiovascular disease. Hypertension. None. RADIATION DOSE: 6.73 CTDI (mGy) COMPAR[place]: [facility] [place] 10[place]14[place]. . TECHNIQUE: Multiple contiguous axial images were obtained through the chest during bolus infusion of 71 ml Omnipaque 350 (iohexol) nonionic water-soluble contrast as a single exam dose. Images were obtained in suspended respiration using multiple row detector helical technique. Using automated exp osure control and adjustment of the mA and/or kV according to patient size, radiation dose was kept a s low as reasonably achievable to obtain optimal diagnostic quality images. DICOM format image data is available electronically for review and comparison. FINDINGS: Lung: Abnormality on chest radiograph corresponds to a 10 mm nodule in the superior segment of the l eft lower lobe adjacent the major fissure. Multiple hypodensities are noted throughout the nodule in a "popcorn pattern". Suspect calcifications rather than enhancement pattern. There is also a 2-3 mm d ensely calcified nodule in the left lung base consistent with granuloma. Pleura: No effusion, significant pleural thickening or pneumothorax. Mediastinum: Heart is unremarkable without pericardial effusion.No evidence of mediastinal or hilar adenopathy. Osseous Structures: Old posterior right eighth rib fracture. Osseous structures are otherwise unremar kable. Soft Tissues: Soft tissues are unremarkable. No significant axillary adenopathy. Other: Visulaized upper abdomen is unremarkable. CONCLUSION: 1. Abnormality on chest radiograph corresponds to a 10 mm nodule in the superior segment of the left lower lobe containing multiple hyperdensities, likely calcifications. Most likely differential consi derations include pulmonary hamartoma versus granuloma given additional 2 to 3 mm densely calcified g ranuloma at the left lung base. Generally, no further follow-up is necessary. However if patient is v maryam high risk or has a history of prior malignancy, follow-up examination may be performed in approxi mately 6 months. Electronically signed by: Samir Bernard MD 10/15/2017 3:58 PM EDT
[2017-10-15 18:06] VITALS: BP 111/62; PULSE 52; RESP 16; TEMP 98.2; O2SAT 96
[2017-10-15 20:45] VITALS: BP 112/62; PULSE 52; RESP 16; TEMP 98.2; O2SAT 96
[2017-10-15] MEDS: ATORVASTATIN 10 MG TAB PO SCH (20:56)
[2017-10-15] MEDS: risperiDONE 3 MG TAB PO SCH (20:56)
[2017-10-15] MEDS: REMOVE OLD NICODERM (NICOTINE) PATCH T-DERMAL SCH (21:00)
[2017-10-15 21:04] VITALS: BP 167/78
[2017-10-15] MEDS: LORazepam 1 MG TAB PO PRN (22:10)
[2017-10-16] MEDS: LEVOTHYROXINE SODIUM 100 MCG TAB PO SCH (05:30)
[2017-10-16 05:57] VITALS: BP 113/64; PULSE 52; RESP 19; TEMP 97.8; O2SAT 92
[2017-10-16] MEDS: FENOFIBRATE 145 MG TAB PO SCH (07:46)
[2017-10-16] MEDS: LOSARTAN 50 MG TAB PO SCH (07:46)
[2017-10-16] MEDS: GABAPENTIN 300 MG CAP PO SCH ×4 (07:47→18:00)
[2017-10-16] MEDS: VENLAFAXINE HCL XR 75 MG CAP PO SCH ×2 (07:47→20:44)
[2017-10-16] MEDS: METOPROLOL TARTRATE 25 MG TAB PO SCH ×2 (07:48→20:45)
[2017-10-16] MEDS: NICOTINE 21 MG/24 HR PATCH T-DERMAL SCH (09:00)
[2017-10-16] MEDS: PANTOPRAZOLE SOD 20 MG DELAYED RELEASE TAB PO SCH (09:00)
--- NOTE | 2017-10-16 09:04 | HHI.PYPN ---
Subjective Remarks Patient seen in her room with floor staff, chart reviewed, patient complaint medications, patient discussed with nurse. Patient continues with some anxiety did they have a she will protocol Ativan yesterday. Patient still has little memory of events leading to the hospitalization. Though today she is alert she is oriented calm and cooperative, denying suicidality homicidality voices or visions. The stomach feel patient is capacity I will lift Cruz act allow patient to sign voluntary continue treatment Review of Systems Except as stated in HPI: all other systems reviewed are Neg Mental Status Examination Appearance: Appropriate Consciousness: Alert Orientation: Person Motor Activity: Normal gait Speech: Unremarkable Language: Adequate Fund of Knowledge: Adequate Attention and Concentration: Adequate Memory: Unremarkable Mood: Irritable Affect: Flat Thought Process & Associations: Intact Thought Content: Appropriate Hallucination Type: Auditory, Visual Delusion Type: Paranoid Suicidal Ideation: No Suicidal Plan: No Suicidal Intention: No Homicidal Ideation: No Homicidal Plan: No Homicidal Intention: No Insight: Poor Judgment: Poor Results Vitals/IOs Vital Signs Date Time Temp Pulse Resp B/P (MAP) Pulse Ox O2 Delivery O2 Flow Rate FiO2 10/16/17 05:57 97.8 52 19 113/64 (80) 92 10/14/17 12:10 Room Air Assessment & Plan Problem List: (1) BRIEF PSYCHOTIC DISORDER ICD Codes: F23 - BRIEF PSYCHOTIC DISORDER Assessment & Plan Estimated LOS: days patient somewhat more focused today now denies suicidality homicidality voice or visions. Will lift Cruz act allow patient to sign voluntary for now continue treatment Justification for Cont. Inpt. At this time patient would decompensate the place to the lower level of care Discharge Planning To be determined Request HC Surrog/Guard Advoc?: No Masood Andre MD Oct 16, 2017 09:04
[2017-10-16] MEDS: LORazepam 1 MG TAB PO PRN ×2 (11:24→21:12)
--- NOTE | 2017-10-16 14:40 | HHI.PR ---
Subjective Remarks Follow-up visit for psychosis, hypertension, hypothyroidism. Patient is seen and examined in bed comfortably in no acute distress. She denies any shortness of breath, cough, fevers, chills, nausea, vomiting or diarrhea. Discussed findings of CT scan, verbalized understanding. Objective Vitals Vital Signs Date Time Temp Pulse Resp B/P (MAP) Pulse Ox O2 Delivery O2 Flow Rate FiO2 10/16/17 05:57 97.8 52 19 113/64 (80) 92 10/15/17 21:04 167/78 (107) 10/15/17 20:45 98.2 52 16 112/62 (79) 96 10/15/17 18:06 98.2 52 16 111/62 (78) 96 I/O 10/15/17 10/15/17 10/15/17 10/16/17 10/16/17 10/16/17 07:00 15:00 23:00 07:00 15:00 23:00 Intake Total 120 ml 1060 ml Balance 120 ml 1060 ml Intake Oral 120 ml 1060 ml # Voids 2 3 Result Diagram: 10/13/17 1110 10/15/17 0626 Imaging Last Impressions Chest CT 10/15/17 0000 Signed Impressions: CONCLUSION: 1. Abnormality on chest radiograph corresponds to a 10 mm nodule in the superi or segment of the left lower lobe containing multiple hyperdensities, likely ca lcifications. Most likely differential considerations include pulmonary hamarto ma versus granuloma given additional 2 to 3 mm densely calcified granuloma at t he left lung base. Generally, no further follow-up is necessary. However if pat ient is very high risk or has a history of prior malignancy, follow-up examinat ion may be performed in approximately [address] 10/14/17 0000 Signed Impressions: CONCLUSION: 1. No acute intracranial abnormalities. Chest X-Ray 10/14/17 Signed Impressions: CONCLUSION: 12 mm nodule upper left lung. Further evaluation with chest CT recommended. Objective Remarks GENERAL: This is a well-nourished, well-developed patient, in NAD, appears anxious. SKIN:Cool and dry. HEAD: Atraumatic. Normocephalic. EYES: Pupils equal round. No scleral icterus. No injection or drainage. ENT: Nose without bleeding. Airway patent. NECK: Trachea midline. No JVD. CARDIOVASCULAR: Regular rate and rhythm without murmurs, gallops, or rubs. RESPIRATORY: Clear to auscultation. Breath sounds equal bilaterally. No wheezes , rales, or rhonchi. GASTROINTESTINAL: Abdomen soft, non-tender, nondistended. No guarding. + bowel sounds in all quadrants. MUSCULOSKELETAL: Extremities without clubbing, cyanosis, or edema. NEUROLOGICAL: Awake and alert, oriented x3. No cranial nerve deficit. Motor and sensory grossly within normal limits. Pressured speech. A/P Assessment and Plan 57-year-old female with past medical history significant for hypertension, hyperlipidemia, hypothyroidism, hyperlipidemia, depression, anxiety, cannabis use, and past benzo withdrawal requiring intubation and mechanical ventilation who presents to the emergency department on 10/13 via private vehicle with daughter. Patient has been admitted to inpatient psychiatry unit, [facility] consulted to assist with medical management of hypertension and evaluation of altered mental status. Psychosis ?OD - Empty Gabapentin caps found at home by daughter. Patient also with a history of benzo-withdraw requiring intubation 4yrs ago. - Treatment plan per psych - UA negative, check chest x-ray abnormal, see below. - Check RPR non-reactive, B12 341, ammonia level 26 - CT of the head shows no acute intracranial abnormalities -CIWA for possible withdraw, although negative for benzos. on admission toxicology screed. Previously discussed with (okay with Benzos if needed) Lung nodules - CXR reveals 12 mm nodule upper left lobe. - patient has a 20 + pack year history and continues to smoke -CT of the chest with 10 mm nodule in the superior segment of left lower lobe containing multiple hyperdensities, likely calcifications. Additional 2-3 millimeters density calcified granuloma at the left lung base. Recommended follow-up in 6 months. -This was discussed with patient, order has been placed on Discharge tab. Hypertensive urgency, asymptomatic Hyperlipidemia -Secondary to noncompliance/ withdraw - Continue Lopressor 25 mg twice daily, Cozaar 100 mg daily - clonidine 0.1 mg as needed for HTN -Lipitor 10 mg at bedtime and Fenofibrate 145 mg daily -decrease nicotine patch due to HTN -Continue monitoring BP and adjusting medications accordingly Hypothyroidism -TSH 0.686, continue levothyroxine 100 mcg - Will check free T4, still appears anxious Fibromyalgia - ? If this is a true history, patient requesting pain medication by name. -Nurse has called pharmacy and verified medications with no recent narcotic prescription. Toxicology screen was also negative for opiates -Will hold off on opiate medication, as needed Tylenol. Marijuana use - Patient reports it has been time since she has last smoked, although tox screen was + - Cessation encouraged GERD -Continue Protonix daily, will add PRN Tums DVT prophylaxis-ambulation Discussed with patient and nurse. Tenzin Aragon Oct 16, 2017 14:40
[2017-10-16] MEDS ORDERED: CALCIUM CARBONATE 500 MG CHEWABLE TAB CHEW PRN (16:15)
[2017-10-16 18:00] VITALS: BP 163/79; PULSE 56; RESP 18; TEMP 97.5; O2SAT 94
[2017-10-16] MEDS: risperiDONE 3 MG TAB PO SCH (20:45)
[2017-10-16] MEDS: ATORVASTATIN 10 MG TAB PO SCH (20:45)
[2017-10-16] MEDS: ACETAMINOPHEN 325 MG TAB PO PRN (20:46)
[2017-10-16] MEDS: REMOVE OLD NICODERM (NICOTINE) PATCH T-DERMAL SCH (20:53)
[2017-10-17] MEDS: LEVOTHYROXINE SODIUM 100 MCG TAB PO SCH (05:59)
[2017-10-17 06:36] VITALS: BP 124/67; PULSE 56; RESP 17; TEMP 97.5; O2SAT 95
[2017-10-17] MEDS: FENOFIBRATE 145 MG TAB PO SCH (08:44)
[2017-10-17] MEDS: METOPROLOL TARTRATE 25 MG TAB PO SCH (08:44)
[2017-10-17] MEDS: LOSARTAN 50 MG TAB PO SCH (08:44)
[2017-10-17] MEDS: VENLAFAXINE HCL XR 75 MG CAP PO SCH (08:44)
[2017-10-17] MEDS: PANTOPRAZOLE SOD 20 MG DELAYED RELEASE TAB PO SCH (08:44)
[2017-10-17] MEDS: GABAPENTIN 300 MG CAP PO SCH ×2 (08:44→12:24)
[2017-10-17] MEDS: NICOTINE 21 MG/24 HR PATCH T-DERMAL SCH (08:46)
[2017-10-17] MEDS ORDERED: FENO160T PO (12:13)
[2017-10-17] MEDS ORDERED: LOSA100T PO (12:13)
[2017-10-17] MEDS ORDERED: LEVO.1 PO (12:13)
[2017-10-17] MEDS ORDERED: RISP3TAB2 PO (12:13)
[2017-10-17] MEDS ORDERED: METO25TA3 PO (12:13)
[2017-10-17] MEDS ORDERED: PANT20 PO (12:13)
[2017-10-17] MEDS ORDERED: HYDR1CAP30 PO (12:13)
[2017-10-17] MEDS ORDERED: NEUR300C PO (12:13)
[2017-10-17] MEDS ORDERED: VENL150T PO (12:13)
[2017-10-17] MEDS ORDERED: ATOR10TA15 PO (12:13)
--- NOTE | 2017-10-17 12:16 | HHI.DS ---
Psychiatry Discharge Summary Inpatient Psychiatric care?: Yes Advance Directive: No Reason Not Provided: Due to Patient Condition Mental Health AdvanceDirective: No Health Care Proxy: No Admission Admission Date Oct 14, 2017 at 10:56 Admission Diagnosis: (1) BRIEF PSYCHOTIC DISORDER ICD Code: F23 - BRIEF PSYCHOTIC DISORDER Brief History The patient is a 57-year-old woman, domiciled alone in her own house, she has 1 daughter, she is , unemployed, supported by Social Security, with psychiatric history of depression, anxiety, psychosis related with benzodiazepine withdrawal, sedative-hypnotics and opiates use disorder, cannabis use disorder, 2 previous psychiatric hospitalizations, suicide attempts , outpatient care with Dr. Hartman, she is on Risperdal 2 mg twice daily, Wellbutrin 150 mg twice daily, Effexor 150 mg twice daily, benztropine 1 mg twice daily, hydroxyzine 25 mg 3 times daily, gabapentin 600 mg 3 times daily, medical history hypothyroidism, hypertension, fibromyalgia, who presents to the emergency department via private vehicle with her family for altered mental status. The daughter states she had not heard from her mother for 2 days, she came over the house today in the house was disheveled per the patient's daughter. The daughter also stated there were pills "everywhere ", however, she is unsure if her mother ingested too many medications. The daughter does state the patient's psychiatrist, Dr. Chin, has been changing the doses of her psychiatric medications. The patient does have a history of previous psychosis requiring intubation approximately 4 years ago when her , according to the patient's daughter. The patient denies any physical complaints, appears to have a normal conversation, however, the middle of a conversation will start talking about cookies or some other inappropriate subject. The patient denies any current complaints. She denies any alcohol ingestion or illicit drug use. Toxicology is positive for cannabis. EMR reviewed. Case widely discussed with ER staff. Collateral information from her daughter Josefa Dang was obtained. Her daughter was able to tell me that her mother has an extensive history of abusing medications. She has being intubated in the past due to the severity of benzodiazepine withdrawal. She is specifically abused Xanax and pain medications. She has history of snorting her medications. She reports that she also has history of depression and anxiety, with previous psychiatric hospitalizations, but no suicidal attempts. She suspects that her mother, sister does not have access to Xanax and pain medications, could be potentially abusing her anxiety, depression medication prescribed by Dr. Hartman. She agrees with a psychiatric hospitalization and treatment. On my evaluation of the patient, I find a patient looks perplexed, internally stimulated quite paranoid. At the beginning resistant and oppositional to cooperate, but able to open up with redirection. The patient reports that she does not remember the reason she is in the hospital. She says that she became confused at home after taking her medication as prescribed. She denies abuse of medications, she denies using recreational drugs, confronted about her U tox positive for cannabis, she insisted that she does not use drugs and never has used. The patient is quite confused, she has been disoriented and disruptive in the Jpod. He reports that yesterday she was hearing voices and seeing things that do not exist, but refused to elaborate about the content of perceptual disturbances. This moment she denies depression, she denies anxiety, she denies psychosis, she denies suicidal and homicidal ideation. She denies visual and auditory hallucinations. Patient does not seem to be reliable, quite confused, disoriented in time and place. Tobacco Use In Past 30 Days: 5 or More Cigarettes/Day Alcohol Use: Never Hospital Course Patient's hospital course was uneventful her initial isolation paranoia vigilance and vague auditory hallucinations gradually softened with compliance with her medication. Patient now sitting on the edge of her bed she is alert oriented calm cooperative denying suicidality homicidality voice or visions. She is compliant with the medications. He has had good conversations with her family. The stomach feel patient is reached maximum benefit of this hospitalization will be discharged today to herself with Rx 1 month to follow- up with her private psychiatrist Dr. canales Results Blood Pressure 124 / 67 Vital Signs Date Time Temp Pulse Resp B/P (MAP) Pulse Ox O2 Delivery O2 Flow Rate FiO2 10/17/17 06:36 97.5 56 17 124/67 (86) 95 10/14/17 12:10 Room Air Laboratory Tests Test 10/14/17 19:18 10/15/17 06:26 Blood Urea Nitrogen 5 MG/DL (7-18) Calcium Level 8.4 MG/DL (8.5-10.1) Chloride Level 108 MEQ/L (98-107) Estimat Glomerular Filtration Rate 85 ML/MIN (>89) Triglycerides Level 209 MG/DL (42-150) HDL Cholesterol 33.7 MG/DL (40.0-60.0) Laboratory Results Test 10/15/17 06:26 Cholesterol Level 146 MG/DL (120-200) HDL Cholesterol 33.7 MG/DL (40.0-60.0) Hemoglobin A1c 5.1 % (4.3-6.0) LDL Cholesterol 71 MG/DL (0-99) Triglycerides Level 209 MG/DL (42-150) Summary of Procedures None done Imaging Last Impressions Chest CT 10/15/17 0000 Signed Impressions: CONCLUSION: 1. Abnormality on chest radiograph corresponds to a 10 mm nodule in the superi or segment of the left lower lobe containing multiple hyperdensities, likely ca lcifications. Most likely differential considerations include pulmonary hamarto ma versus granuloma given additional 2 to 3 mm densely calcified granuloma at t he left lung base. Generally, no further follow-up is necessary. However if pat ient is very high risk or has a history of prior malignancy, follow-up examinat ion may be performed in approximately [address] 10/14/17 0000 Signed Impressions: CONCLUSION: 1. No acute intracranial abnormalities. Chest X-Ray 10/14/17 0000 Signed Impressions: CONCLUSION: 12 mm nodule upper left lung. Further evaluation with chest CT recommended. Pending results at discharge: No Medications # of Antipsychotic meds at D/C: 1 Approp Antipsych med options 1 - Minimum of three failed multiple trials of monotherapy. 2 - Documented plan to taper to monotherapy due to previous use of multiple meds OR cross-taper in progress at D/C. 3 - Documentation of augmentation of Clozapine. 4 - Justification other than those listed in allowable values 1-3, document here : Discharge Discharge Date: Oct 17, 2017 Discharge Diagnosis: (1) BRIEF PSYCHOTIC DISORDER Diagnosis: Principal ICD Code: F23 - BRIEF PSYCHOTIC DISORDER Pt Condition on Discharge: Stable Discharge Disposition: Discharge Home Discharge Instructions Diet Instructions: As Tolerated, No Restrictions Activities you can perform: Regular-No Restrictions Scheduled Appointment: Dr. hartman Discharge Time > 30 minutes Mental Status Examination Appearance: Appropriate Consciousness: Alert Orientation: Person Motor Activity: Normal gait Speech: Unremarkable Language: Adequate Fund of Knowledge: Adequate Attention and Concentration: Adequate Memory: Unremarkable Mood: Irritable Affect: Flat Thought Process & Associations: Intact Thought Content: Appropriate Hallucination Type: Auditory, Visual Delusion Type: Paranoid Suicidal Ideation: No Suicidal Plan: No Suicidal Intention: No Homicidal Ideation: No Homicidal Plan: No Homicidal Intention: No Insight: Poor Judgment: Poor Discharge/Advance Care Plan Health Problems: (1) BRIEF PSYCHOTIC DISORDER Goals to promote your health * To prevent worsening of your condition and complications * To maintain your health at the optimal level Directions to meet your goals Take your medications as prescribed Follow your dietary instruction Follow activity as directed Keep your appointments as scheduled Take your immunizations and boosters as scheduled If your symptoms worsen call your PCP, if no PCP go to Urgent Care Center or Emergency Room For 19/11 questions related to your inpatient stay or results of tests pending at discharge, please contact Dr. Masood Andre at Smoking is Dangerous to Your Health. Avoid second hand smoking Masood Andre MD Oct 17, 2017 12:16
--- NOTE | 2017-10-17 14:11 | HHI.PR ---
Subjective Remarks Follow-up visit for psychosis, hypertension, hypothyroidism. Patient is seen and examined today. States she is doing well. Denies any acute issues. Objective Vitals Vital Signs Date Time Temp Pulse Resp B/P (MAP) Pulse Ox O2 Delivery O2 Flow Rate FiO2 10/17/17 06:36 97.5 56 17 124/67 (86) 95 10/16/17 18:00 97.5 56 18 163/79 (107) 94 I/O 10/16/17 10/16/17 10/16/17 10/17/17 10/17/17 10/17/17 07:00 15:00 23:00 07:00 15:00 23:00 Intake Total 1200 ml 360 ml Balance 1200 ml 360 ml Intake Oral 1200 ml 360 ml # Voids 5 Result Diagram: 10/13/17 1110 10/15/17 0626 Imaging Last Impressions Chest CT 10/15/17 0000 Signed Impressions: CONCLUSION: 1. Abnormality on chest radiograph corresponds to a 10 mm nodule in the superi or segment of the left lower lobe containing multiple hyperdensities, likely ca lcifications. Most likely differential considerations include pulmonary hamarto ma versus granuloma given additional 2 to 3 mm densely calcified granuloma at t he left lung base. Generally, no further follow-up is necessary. However if pat ient is very high risk or has a history of prior malignancy, follow-up examinat ion may be performed in approximately [address] 10/14/17 0000 Signed Impressions: CONCLUSION: 1. No acute intracranial abnormalities. Chest X-Ray 10/14/17 0000 Signed Impressions: CONCLUSION: 12 mm nodule upper left lung. Further evaluation with chest CT recommended. Objective Remarks GENERAL: This is a well-nourished, well-developed patient, in no apparent distress. CARDIOVASCULAR: Regular rate and rhythm without murmurs, gallops, or rubs. RESPIRATORY: Clear to auscultation. Breath sounds equal bilaterally. No wheezes , rales, or rhonchi. GASTROINTESTINAL: Abdomen soft, non-tender, nondistended. Normal active bowel sounds MUSCULOSKELETAL: Extremities without clubbing, cyanosis, or edema. NEURO: Alert & Oriented to person, place, situation. Moves all ext x4 A/P Assessment and Plan 57-year-old female with past medical history significant for hypertension, hyperlipidemia, hypothyroidism, hyperlipidemia, depression, anxiety, cannabis use, and past benzo withdrawal requiring intubation and mechanical ventilation who presents to the emergency department on 10/13 via private vehicle with daughter. Patient has been admitted to inpatient psychiatry unit, [facility] consulted to assist with medical management of hypertension and evaluation of altered mental status. Psychosis ?OD -Empty Gabapentin caps found at home by daughter. Patient also with a history of benzo-withdraw requiring intubation 4yrs ago. -Treatment plan per psych -UA negative. - RPR non-reactive, B12 341, ammonia level 26 -CT of the head shows no acute intracranial abnormalities -CIWA for possible withdraw, although negative for benzos on admission toxicology Lung nodules - CXR reveals 12 mm nodule upper left lobe. - patient has a 20 + pack year history and continues to smoke -CT of the chest with 10 mm nodule in the superior segment of left lower lobe containing multiple hyperdensities, likely calcifications. Additional 2-3 millimeters density calcified granuloma at the left lung base. Recommended follow-up in 6 months. -Follow up in outpatient. Hypertensive urgency, asymptomatic Hyperlipidemia -Secondary to noncompliance/ withdraw -Continue Lopressor 25 mg twice daily, Cozaar 100 mg daily -Clonidine 0.1 mg as needed for HTN -Lipitor 10 mg at bedtime and Fenofibrate 145 mg daily -Improving Hypothyroidism -TSH 0.686, continue levothyroxine 100 mcg -T4 wnl Fibromyalgia? -Nurse has called pharmacy and verified medications with no recent narcotic prescription. Toxicology screen was also negative for opiates -No opiate medication Marijuana use -Counselled GERD -Continue Protonix daily, will add PRN Tums DVT prophylaxis-ambulation Medically cleared for DC Timothy Us Oct 17, 2017 14:11
[2017-10-17 16:31] VITALS: BP 175/81; PULSE 57; RESP 16; TEMP 98.1; O2SAT 98
== END 2017-10-17 17:19 | disposition home or self-care (01) | DRG 885 ==
LOC: NEPC 10:34 → NEDA 10-14 10:56 → H250 10-14 13:25
PROVIDERS: ADMIT Psychiatry & Neurology Psychiatry; ATTEND Psychiatry & Neurology Psychiatry
DX: F23 Brief psychotic disorder (principal); Z91.14 Patient's other noncompliance with medication regimen; I10 Essential (primary) hypertension; I16.0 Hypertensive urgency; M79.7 Fibromyalgia; R82.5 Elevated urine levels of drugs, medicaments and biological substances; E78.5 Hyperlipidemia, unspecified; E89.0 Postprocedural hypothyroidism; W88.1XXA Exposure to radioactive isotopes, initial encounter; R91.1 Solitary pulmonary nodule; F17.210 Nicotine dependence, cigarettes, uncomplicated
CPT/HCPCS: 70450; 71045; 71260; 80048; 80053; 80061; 80307; 81001; 82140; 82607; 83036; 84439; 84443; 85025; 85610; 85730; 86592; 93005; Q9967